=== PATIENT | male | born 1930 | race Caucasian/White ===

== ENCOUNTER 2016-11-29 12:26 | Emergency (ER) | payer OTHER, MEDICARE, BC ==
[~2016-11-29] VITALS: Ht 172.7 cm; Wt 55.4 kg
[2016-11-29 12:28] VITALS: BP 134/73; PULSE 86; RESP 16; TEMP 97.8; O2SAT 99
[2016-11-29] MEDS ORDERED: SODIUM CHLORID 0.9% 500 ML INJ 500 ML IV ONE (12:45)
[2016-11-29 12:56] VITALS: O2SAT 98
[2016-11-29] MEDS ORDERED: GABA100C4 PO (12:58)
[2016-11-29] MEDS ORDERED: NAME10TA PO (12:58)
[2016-11-29] MEDS ORDERED: AMLO5TAB2 PO (12:58)
[2016-11-29] MEDS ORDERED: SIMV20TA PO (12:58)
[2016-11-29] MEDS ORDERED: ARIC10TA PO (12:58)
[2016-11-29] MEDS ORDERED: inhaler (12:58)
--- NOTE | 2016-11-29 12:59 | PD ---
HPI Chief Complaint: General Weakness Time Seen by Provider: 12:37 Travel History International Travel<30 days: No Contact w/Intl Traveler<30days: No Traveled to known affect area: No History of Present Illness HPI 86-year-old male presents with his caregiver with concern of dehydration and 8 pound weight loss over the past week. He went to his primary doctor for upper respiratory symptoms and was placed on an antibiotic of unknown name that he has now completed. This was 2 weeks ago. He has no upper respiratory symptoms now. He followed also with his director of radiology and had a normal checkup one week ago. He has not followed with his primary doctor again for concerns about his weight loss and dehydration. The patient has dementia and cannot provide me with significant history but denies any specific pain. 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) Tobacco Use: No Substance Use: No Allergies-Medications (Allergen,Severity, Reaction): Coded Allergies: No Known Allergies (Unverified , 11/29/16) Reported Meds & Prescriptions Reported Meds & Active Scripts Active Keflex (Cephalexin) 500 Mg Cap 500 Mg PO BID 10 Days Reported Gabapentin 100 Mg Cap 100 Mg PO BID [inhaler] Namenda (Memantine) 10 Mg Tab 10 Mg PO DAILY Simvastatin 20 Mg Tab 20 Mg PO DAILY Amlodipine (Amlodipine Besylate) 5 Mg Tab 5 Mg PO DAILY Aricept (Donepezil) 10 Mg Tab 10 Mg PO HS Review of Systems Except as stated in HPI: all other systems reviewed are Neg Physical Exam Exam Limitations: Poor Historian Narrative GENERAL: Well-nourished, well-developed patient. SKIN: Warm and dry. HEAD: Normocephalic and atraumatic. EYES: No injection or drainage. ENT: No nasal drainage noted. NECK: Supple, trachea midline. CARDIOVASCULAR: Regular rate and rhythm RESPIRATORY: Breath sounds equal bilaterally. No accessory muscle use. GASTROINTESTINAL: Abdomen soft, non-tender, nondistended. NEUROLOGICAL: Awake. Motor and sensory grossly within normal limits. Normal speech. Equal grasp bilaterally, 5 out of 5 in all 4 extremities Data Data Last Documented VS Vital Signs Date Time Temp Pulse Resp B/P Pulse Ox O2 Delivery O2 Flow Rate FiO2 11/29/16 12:56 98 Room Air 11/29/16 12:28 97.8 86 16 134/73 Orders Magnesium (Mg) (11/29/16 12:45) Phosphorus (Po4) (11/29/16 12:45) Complete Blood Count With Diff (11/29/16 12:45) Basic Metabolic Panel (Bmp) (11/29/16 12:45) Urinalysis - C+S If Indicated (11/29/16 12:45) Iv Access Insert/Monitor (11/29/16 12:45) Ecg Monitoring (11/29/16 12:45) Oximetry (11/29/16 12:45) Sodium Chlorid 0.9% 500 Ml Inj (Ns 500 M (11/29/16 12:45) Cath For Specimen (11/29/16 13:48) Urine Culture (11/29/16 14:03) Ceftriaxone Inj (Rocephin Inj) (11/29/16 14:30) Labs Laboratory Tests Test 11/29/16 11/29/16 13:00 14:03 White Blood Count 5.9 TH/MM3 Red Blood Count 4.11 MIL/MM3 Hemoglobin 12.0 GM/DL Hematocrit 35.6 % Mean Corpuscular Volume 86.7 FL Mean Corpuscular Hemoglobin 29.3 PG Mean Corpuscular Hemoglobin 33.8 % Concent Red Cell Distribution Width 13.3 % Platelet Count 42 TH/MM3 Mean Platelet Volume 10.6 FL Neutrophils (%) (Auto) 54.7 % Lymphocytes (%) (Auto) 14.9 % Monocytes (%) (Auto) 29.5 % Eosinophils (%) (Auto) 0.2 % Basophils (%) (Auto) 0.7 % Neutrophils # (Auto) 3.2 TH/MM3 Lymphocytes # (Auto) 0.9 TH/MM3 Monocytes # (Auto) 1.8 TH/MM3 Eosinophils # (Auto) 0.0 TH/MM3 Basophils # (Auto) 0.0 TH/MM3 CBC Comment AUTO DIFF Differential Total Cells 100 Counted Neutrophils % (Manual) 52 % Band Neutrophils % 2 % Lymphocytes % 18 % Monocytes % 27 % Neutrophils # (Manual) 3.2 TH/MM3 Metamyelocytes 1 % Differential Comment AUTO DIFF CONFIRMED Platelet Estimate LOW Platelet Morphology Comment NORMAL Sodium Level 142 MEQ/L Potassium Level 4.4 MEQ/L Chloride Level 110 MEQ/L Carbon Dioxide Level 25.5 MEQ/L Anion Gap 7 MEQ/L Blood Urea Nitrogen 37 MG/DL Creatinine 1.00 MG/DL Estimat Glomerular Filtration 71 ML/MIN Rate Random Glucose 78 MG/DL Calcium Level 9.1 MG/DL Phosphorus Level 2.9 MG/DL Magnesium Level 2.6 MG/DL Urine Collection Type CLEAN CATCH Urine Color YELLOW Urine Turbidity CLEAR Urine pH 6.0 Urine Specific [place] 1.022 Urine Protein NEG mg/dL Urine Glucose (UA) NEG mg/dL Urine Ketones NEG mg/dL Urine Occult Blood TRACE Urine Nitrite NEG Urine Bilirubin NEG Urine Leukocyte Esterase NEG Urine RBC 0-3 /hpf Urine WBC 9-14 /hpf Urine Squamous Epithelial 0-5 /hpf Cells Urine Amorphous Sediment MOD Urine Bacteria FEW /hpf Microscopic Urinalysis Comment CULTURE INDICATED MDM Medical Decision Making Medical Screen Exam Complete: Yes Emergency Medical Condition: Yes Medical Record Reviewed: Yes (past history confirmed) Interpretation(s) CBC & BMP Diagram 11/29/16 13:00 ua with uti Differential Diagnosis Anemia, renal failure, electrolyte abnormality, UTI Narrative Course Will check blood work, urinalysis to start workup and reevaluate. ed workup with uti, patient wanting to go home, alert and orientated, medication care manager will help assist at home and increase home care, Patient denies any new complaints, all questions answered. Patient and medication care manager know that follow up is incumbent on them and to return to the emergency room immediately if new or worsening symptoms develop. Patient and medication care manager given strict return precautions, vitals reviewed and are normal, agrees to further workup as an outpatient. Diagnosis Primary Impression: UTI (urinary tract infection) Qualified Code: N39.0 - Urinary tract infection without hematuria, site unspecified Patient Instructions: General Instructions Additional Instructions: return as needed, follow with primary tommorrow, take antibiotic as directed Med/Other Pt SpecificInfo: Prescription(s) given Scripts Cephalexin (Keflex)500 Mg [id number] Mg PO BID 10 Days Prov:Marie Villanueva MD 11/29/16 Disposition: 01 DISCHARGE HOME Condition: Stable Marie Villanueva MD November 29, 2016 12:59 Marie Villanueva MD November 29, 2016 12:59
[2016-11-29 13:09] LABS: AUTOMATED NEUTROPHIL # 3.2 TH/MM3 (1.8-7.7); BASOPHIL % 0.7 % (0.0-2.0); EOSINOPHIL % 0.2 % (0.0-4.0); HEMATOCRIT 35.6 % (39.0-51.0); LYMPH % 14.9 % (9.0-44.0); LYMPHOCYTE # 0.9 TH/MM3 (1.0-4.8); MEAN CELL VOLUME 86.7 FL (80.0-100.0); MEAN CORPUSCULAR HEMOGLOBIN 29.3 PG (27.0-34.0); MEAN CORPUSCULAR HGB CONC 33.8 % (32.0-36.0); MONO % 29.5 % (0.0-8.0); NEUT % 54.7 % (16.0-70.0); PLATELET COUNT 42 TH/MM3 (150-450); RED BLOOD COUNT 4.11 MIL/MM3 (4.50-5.90); RED CELL DISTRIBUTION WIDTH 13.3 % (11.6-17.2); WHITE BLOOD COUNT 5.9 TH/MM3 (4.0-11.0)
[2016-11-29 13:27] LABS: POTASSIUM 4.4 MEQ/L (3.5-5.1)
[2016-11-29 13:29] LABS: HEMO FLAGS AUTO DIFF
[2016-11-29 13:30] LABS: BICARBONATE 25.5 MEQ/L (21.0-32.0); MAGNESIUM 2.6 MG/DL (1.5-2.5)
[2016-11-29 14:12] LABS: BLOOD, URINE TRACE (NEG); GLUCOSE,URINE NEG (NEG); KETONE, URINE NEG (NEG); NITRITE,URINE NEG (NEG)
[2016-11-29 14:14] LABS: METHOD OF COLLECTION CLEAN CATCH; URINE COLOR YELLOW (YELLW/STRAW)
[2016-11-29 14:16] LABS: RBC, URINE 0-3 /hpf (0-3)
[2016-11-29 14:16] LABS: BANDS 2 % (0-6); METAMYELOCYTES 1 % (0-1); NEUTROPHIL # MANUAL DIFF 3.2 TH/MM3 (1.8-7.7); POLYS (SEG NEUTROPHILS) 52 % (16-70); WBC DIFF SAMPLE 100
[2016-11-29 14:17] LABS: BACTERIA, URINE FEW /hpf; COMMENT (UR) CULTURE INDICATED; CULTURE IF INDICATED CULTURE INDICATED; SQUAMOUS EPITHELIAL CELL URINE 0-5 /hpf (0-5)
[2016-11-29 14:18] LABS: PLATELET ESTIMATE SMEAR LOW (NORMAL); PLATELET MORPHOLOGY NORMAL (NORMAL); SCAN/DIFF AUTO DIFF CONFIRMED
[2016-11-29] MEDS ORDERED: cefTRIAXone INJ 1,000 MG in SODIUM CHLORIDE 0.9% INJ 100 ML IV ONE (14:30)
[2016-11-29] MEDS ORDERED: CEPH-460 PO (14:34)
== END 2016-11-29 15:46 | disposition home or self-care (01) ==
LOC: PHED 12:26
DX: N39.0 Urinary tract infection, site not specified (principal); F03.90 Unspecified dementia, unspecified severity, without behavioral disturbance, psychotic disturbance, mood disturbance, and anxiety; I10 Essential (primary) hypertension; M19.90 Unspecified osteoarthritis, unspecified site; Z51.81 Encounter for therapeutic drug level monitoring; Z79.899 Other long term (current) drug therapy
CPT/HCPCS: 80048; 81001; 83735; 84100; 85025; 87086; 96361; 96374; 99284; J0696; J7040; P9612